=== PATIENT | female | born 1955 | race Caucasian/White ===

== ENCOUNTER → 2023-07-27 10:00 | Outpatient (REF) | payer MEDICARE, OTHER, SELFPAY | LOC: CLAB 10:00 | PROVIDERS: ATTENDING PHYSICIAN Obstetrics & Gynecology Gynecology | DX: N95.0 Postmenopausal bleeding (principal); R93.89 Abnormal findings on diagnostic imaging of other specified body structures | CPT/HCPCS: 88305 ==

== ENCOUNTER → 2023-08-31 10:04 | Outpatient (REF) | payer MEDICARE, OTHER, SELFPAY | LOC: HWRAD 10:04 | PROVIDERS: ATTENDING PHYSICIAN Nurse Practitioner Adult Health | DX: Z78.0 Asymptomatic menopausal state (principal) | CPT/HCPCS: 77080 ==

== ENCOUNTER → 2023-09-06 18:13 | Outpatient (REF) | payer MEDICARE, OTHER, SELFPAY | LOC: MRI 3T 18:13 | PROVIDERS: ATTENDING PHYSICIAN Obstetrics & Gynecology Gynecology; FAMILY PHYSICIAN Nurse Practitioner Adult Health | DX: Z98.890 Other specified postprocedural states (principal); R93.89 Abnormal findings on diagnostic imaging of other specified body structures | CPT/HCPCS: 72197 ==

== ENCOUNTER → 2023-10-26 10:41 | Outpatient (REF) | payer MEDICARE, OTHER, SELFPAY | LOC: HWWDC 10:41 | PROVIDERS: ATTENDING PHYSICIAN Nurse Practitioner Adult Health | DX: Z12.31 Encounter for screening mammogram for malignant neoplasm of breast (principal) | CPT/HCPCS: 77063; 77067 ==

== ENCOUNTER 2023-11-27 06:30 | Day surgery (SDC) | payer MEDICARE, OTHER, SELFPAY ==
[2023-11-27] VITALS (13 sets, daily range): BP systolic 104–175; BP diastolic 54–81; BMI 38.9
[2023-11-27] MEDS: NEURONTIN 300 MG PO (09:01)
[2023-11-27] MEDS: CELEBREX 200 MG PO (09:01)
[2023-11-27] MEDS: TYLENOL 1000 MG PO (09:01)
[2023-11-27] MEDS: HEPARIN 5000 UNITS SC (09:02)
[2023-11-27] MEDS: NORMOSOL-R 1000 IV (09:04)
[2023-11-27 09:25] LABS: Hematocrit 37.6 % (37.0-47.0); Hemoglobin 12.3 g/dL (12.0-16.0); Mean Corp Hgb Conc. 32.7 g/dL (33.0-37.0); Mean Corpuscular Hgb 27.5 pg (27.0-31.0); Mean Corpuscular Volume 84.1 fL (81.0-99.0); Mean Platelet Volume 9.7 fL (7.4-10.4); Platelet Count 377 10^3/uL (130-400); Red Blood Cell Count 4.47 10^6/uL (4.20-5.40); Red Cell Dist. Width 14.2 % (11.5-14.5); White Blood Cell Count 10.8 10^3/uL (4.8-10.8)
[2023-11-27 09:33] LABS: ALT (SGPT) 12 U/L (0-35); AST (SGOT) 20 U/L (14-36); Albumin 4.1 g/dl (3.5-5.0); Alkaline Phosphatase 107 U/L (38-126); Blood Urea Nitrogen 12 mg/dl (7-17); Calcium 9.5 mg/dl (8.4-10.2); Carbon Dioxide 27 mmol/L (22-30); Chloride 100 mmol/L (98-107); Estimated Creatinine Clearance 93 ml/min; Glucose 104 mg/dl (70-99); Potassium 3.8 mmol/L (3.5-5.1); Sodium 137 mmol/L (135-145); Total Bilirubin 0.7 mg/dl (0.2-1.3); Total Protein 7.5 g/dl (6.3-8.2); eGFR > 60.00
--- NOTE | 2023-11-27 12:31 | OR.RPT ---
Operative Report
Operative Report
Date of surgery: November 27, 2023
Preoperative diagnosis: Thickened endometrial lining, postmenopausal bleeding, prior history of endometrial ablation with inability to assess endometrium
Postoperative diagnosis endometrial polyp pending final pathology
Procedures: Robotic assisted total laparoscopic hysterectomy, bilateral salpingo-oophorectomy, injection of cervix with ICG dye for mapping and identification of sentinel lymph nodes, robotic assisted bilateral pelvic sentinel lymphadenectomy,
repair of vaginal lacerations, tap block
Surgeon:Zafar Garcia
Assist: Jonah Henson
Anesthesia: General endotracheal intubation
Estimated blood loss 100 cc
Complication: None
Procedure in detail: This patient was brought to the operating room and placed in supine position, general anesthesia was administered and she was intubated without any difficulty. She was placed in lithotomy position using yellowfin stirrups, arms
were wrapped and placed along the patient's side and all joints were protected. The patient was prepped and draped, timeout procedure was carried out. Olivarez catheter was inserted for bladder drainage under sterile conditions. Anterior lip of the
cervix was grasped with single-tooth tenaculum, cervical canal was dilated, I only could get 6 cm into the canal. The cervix was injected with ICG dye at 3 and 9:00 at 5 mm and 10 mm stations. Uterine manipulator with 3.0 cm KAMRYN ring was placed.
Attention was turned abdominally. Veress needle was inserted just below left costal margin and abdomen was insufflated with CO2 gas up to pressure of 15 mmHg. Next Optiview laparoscopic approach was used to enter in the right upper quadrant, we
noted presence of adhesions to the anterior abdominal wall from the omentum and a portion of the omentum that had herniated through the umbilicus. 8 mm robotic ports were placed in the left lateral abdomen and left upper quadrant and then we
inserted a port in the right lateral abdomen, we took the adhesions down sharply with scissors and took The portion of the omentum from umbilical hernia and this allowed us to place a port along the midline 25 cm cephalad to symphysis pubis.
Tap block was performed using a mixture of 0.5% ropivacaine 30 cc diluted with 30 cc saline, this mixture was injected 2 fingerbreadths below the costal margins laterally as well as mid lateral abdomen under direct visualization just above the
peritoneum and under the muscle.
The patient was placed in deep Trendelenburg at 30 degrees and robotic system was docked. Pelvic washings were collected and submitted to pathology. There is evidence of hemosiderin stains involving pelvic peritoneum. Adhesions of the sigmoid
colon to the left pelvis were taken down adhesions of the small bowel to the right pelvis was taken down. Right and left round ligaments were sealed and divided anterior and posterior leaves of the broad ligament were dissected open both
retroperitoneal spaces were opened, there was excessive redundant sigmoid colon which interfered with visualization of pelvic organs and needed to be retracted at all times throughout the rest of the case. [place] lymph nodes were identified at
the proximal aspects of right external iliac artery and left external iliac artery and these were removed and submitted to pathology. We identified the ureter bilaterally and created a window between IP ligaments and ureters. Both IP ligaments
were sealed 3 times and divided. Tubes and ovaries were left attached to the uterus. We developed sharply the vesicouterine peritoneum and took it down below the level of the cervix. Uterine arteries followed by cardinal ligaments followed by
uterosacral ligaments were sealed and divided. Circumferential incision was made around the KAMRYN ring and then the specimen was removed through the vagina. This was sent for frozen section. Vaginal cuff was closed with 0 Vicryl suture ligature in
a [id number] fashion incorporating uterosacral ligaments for support on both apices. 2 -0 V-Loc suture was used to close the vaginal apex from right to the left and a second layer going back to the right side. All operative sites were
examined and good hemostasis was present. Frozen section of the uterus reveals endometrium to have probably a benign polyp but no other worrisome lesions. Decision was made to close the case. Laparoscopic ports and robotic system was undocked and
pneumoperitoneum was released. Skin incisions were closed with 4-0 Monocryl in a subcuticular fashion. I examined the vagina and there were bilateral lacerations along the right and left posterior aspect of introitus and these were repaired with a
series of [id number] sutures of 3-0 Vicryl. Good hemostasis was obtained. Patient was awakened extubated and returned back to recovery room stable awake and extubated condition. I was present and scrubbed for entire procedure as dictated
above
Disposition: To PACU, extubated alert, stable
[2023-11-27] MEDS: ZOFRAN 4 MG IV (12:45)
[2023-11-27] MEDS: DEMEROL 12.5 MG IV ×2 (12:45→13:00)
[2023-11-27] MEDS: CIPRO 500 MG PO (14:17)
[2023-11-27] MEDS: TYLENOL 650 MG PO (15:06)
== END 2023-11-27 15:24 | disposition home or self-care (01) ==
LOC: SDS 06:30
PROVIDERS: ATTENDING PHYSICIAN Obstetrics & Gynecology Gynecologic Oncology
DX: N84.0 Polyp of corpus uteri (principal); D25.9 Leiomyoma of uterus, unspecified; N83.8 Other noninflammatory disorders of ovary, fallopian tube and broad ligament; N83.292 Other ovarian cyst, left side; N83.291 Other ovarian cyst, right side
CPT/HCPCS: 58571; 38571; 38900; 57200; 88307; 88309; 88332; 80053; 85027; 86850; 86900; 86901; 88112; 88331; 88342

== ENCOUNTER 2024-07-23 15:21 | Emergency (ER) | payer MEDICARE, OTHER, SELFPAY ==
[2024-07-23 15:27] VITALS: BP 131/51
[2024-07-23 15:48] LABS: % Basophils 1.1 % (0-2); % Eosinophils 7.2 % (0-6); % Immature Granulocytes 0.4 % (0-0.5); % Lymphocytes 21.3 % (20.5-51.1); % Monocytes 7.2 % (1.7-9.3); % Neutrophils 62.8 % (42.2-75.2); Absolute Basophils 0.1 10^3/uL (0-0.2); Absolute Eosinophils 0.7 10^3/uL (0-0.7); Absolute Monocytes 0.7 10^3/uL (0.1-0.6); Absolute Neutrophils 5.9 10^3/uL (1.4-6.5); Hematocrit 36.9 % (37.0-47.0); Hemoglobin 11.9 g/dL (12.0-16.0); Mean Corp Hgb Conc. 32.2 g/dL (33.0-37.0); Mean Corpuscular Hgb 26.9 pg (27.0-31.0); Mean Corpuscular Volume 83.5 fL (81.0-99.0); Mean Platelet Volume 9.6 fL (7.4-10.4); Nucleated Red Blood Cells % 0 %; Platelet Count 396 10^3/uL (130-400); Red Blood Cell Count 4.42 10^6/uL (4.20-5.40); White Blood Cell Count 9.4 10^3/uL (4.8-10.8)
[2024-07-23 16:00] LABS: ALT (SGPT) 12 U/L (0-35); AST (SGOT) 19 U/L (14-36); Albumin 4.3 g/dl (3.5-5.0); Alkaline Phosphatase 92 U/L (38-126); Blood Urea Nitrogen 17 mg/dl (7-17); Calcium 9.5 mg/dl (8.4-10.2); Carbon Dioxide 30 mmol/L (22-30); Chloride 100 mmol/L (98-107); Glucose 130 mg/dl (70-99); Potassium 3.9 mmol/L (3.5-5.1); Sodium 139 mmol/L (135-145); Total Bilirubin 0.7 mg/dl (0.2-1.3); Total Protein 7.3 g/dl (6.3-8.2); eGFR > 60.00
[2024-07-23 16:11] LABS: Troponin I < 0.012 ng/ml
[2024-07-23 17:31] VITALS: BP 140/52
--- NOTE | 2024-07-23 17:58 | ED.GENMED ---
History of Present Illness
<Kush Ogden Jr., PA-C - Last Filed: 07/23/24 18:40>
General
Chief Complaint: Fainting Sensation
Source: patient
Exam Limitations: none
Time Seen by Provider: 07/23/24 17:38
Nursing documentation reviewed up to this point in time: agreed with
History of Present Illness
History of Present Illness:
69-year-old female presenting to the emergency department today with concerns of jaw discomfort and feeling like she was going to pass out earlier today just prior to arrival. Did not fully pass out was able to sit down felt tingly in her hands and
her face which resolved after few minutes. Also noticed some slight heaviness to her left chest that seem to come and go over the next hour. At this point claims that she generally feels well no significant ongoing symptoms at this point. Denies
similar symptoms in the past. Denies any recent trauma surgery immobilization history of blood clots or leg swelling.
Past History
<Kush Ogden Jr., PA-C - Last Filed: 07/23/24 18:40>
Past History
ED Past Medical History: None
ED Past Surgical History: Cholecystectomy, and Gynecological
Social History
Tobacco: Non-smoker
Personal:
Living: with family
Employment: Employed
Review of Systems
<Kush Ogden Jr., PA-C - Last Filed: 07/23/24 18:40>
Review of Systems
Allergies reviewed?: Yes
All Other Systems: ROS reviewed and negative except as documented in HPI and ROS
Phy Exam
<PERLA Bowser Jr. Last Filed: 07/23/24 18:40>
Physical Exam
Physical Exam:
GENERAL: Alert , in no apparent distress
EYE: pupils equal and reactive
NECK: Supple, no significant adenopathy.
ENT: o/p clr, mmm.
CARDIAC: Regular rate and rhythm .
LUNGS: Clear breath sounds bilaterally, no acute respiratory distress, no wheezes/rales/rhonchi
ABDOMEN: Soft, without focal tenderness, no r/g, no cvat
NEUROLOGICAL: Alert and oriented, no focal neuro deficits
SKIN: Warm and dry, skin intact.
MUSCULOSKELETAL: No edema, well perfused.
PSYCH: Normal and appropriate interaction.
Course
<Kush Ogden Jr., PERLA - Last Filed: 07/23/24 18:40>
Orders/Labs/Results
Orders:
Orders
07/23/24 15:23
ECG [Electrocardiogram (*1)] Urgent
Reason for Study: Syncope
EKG- Treatment ONCE
07/23/24 15:37
Complete Blood Count/With Diff Urgent
Comprehensive Metabolic Panel Urgent
TSH Reflex To Free T4 Urgent
Comment: ADD ON
Troponin I Urgent
07/23/24 17:52
Add On- LAB Urgent
Tests Added?: tsh free t4
Chest [CR Chest - 2 Views ] Urgent
Comment:
Reason For Exam: cp sob
07/23/24 18:25
EKG [Electrocardiogram (*1)] Urgent
Reason for Study: Chest Pain
07/23/24 18:26
EKG- Treatment ONCE
07/23/24 18:37
Troponin I Urgent
Abnormal Lab Results
07/23/24
15:37
Hgb 11.9 L g/dL
(12.0-16.0)
Hct 36.9 L %
(37.0-47.0)
MCH 26.9 L pg
(27.0-31.0)
MCHC 32.2 L g/dL
(33.0-37.0)
RDW 15.0 H %
(11.5-14.5)
Absolute Monos (auto) 0.7 H 10^3/uL
(0.1-0.6)
Eosinophils % 7.2 H %
(0-6)
Glucose 130 H mg/dl
(70-99)
07/23/24 15:37
07/23/24 15:37
Vital Signs
Initial and Last Documented VS:
Initial Vital Signs
Temp Pulse Resp BP Pulse Ox
36.8 C 72 20 131/51 96
07/23/24 15:27 07/23/24 15:27 07/23/24 15:27 07/23/24 15:27 07/23/24 15:27
Last Documented Vital Signs
Temp Pulse Resp BP Pulse Ox
36.8 C 76 33 146/78 97
07/23/24 15:27 07/23/24 18:41 07/23/24 18:41 07/23/24 20:00 07/23/24 18:41
<Kiesha Santana PA-C - Last Filed: 07/23/24 23:35>
Orders/Labs/Results
Orders:
Orders
07/23/24 15:23
ECG [Electrocardiogram (*1)] Urgent
Reason for Study: Syncope
EKG- Treatment ONCE
07/23/24 15:37
Complete Blood Count/With Diff Urgent
Comprehensive Metabolic Panel Urgent
TSH Reflex To Free T4 Urgent
Comment: ADD ON
Troponin I Urgent
07/23/24 17:52
Add On- LAB Urgent
Tests Added?: tsh free t4
Chest [CR Chest - 2 Views ] Urgent
Comment:
Reason For Exam: cp sob
07/23/24 18:25
EKG [Electrocardiogram (*1)] Urgent
Reason for Study: Chest Pain
07/23/24 18:26
EKG- Treatment ONCE
07/23/24 18:37
Troponin I Urgent
Abnormal Lab Results
07/23/24
15:37
Hgb 11.9 L g/dL
(12.0-16.0)
Hct 36.9 L %
(37.0-47.0)
MCH 26.9 L pg
(27.0-31.0)
MCHC 32.2 L g/dL
(33.0-37.0)
RDW 15.0 H %
(11.5-14.5)
Absolute Monos (auto) 0.7 H 10^3/uL
(0.1-0.6)
Eosinophils % 7.2 H %
(0-6)
Glucose 130 H mg/dl
(70-99)
07/23/24 15:37
07/23/24 15:37
Vital Signs
Initial and Last Documented VS:
Initial Vital Signs
Temp Pulse Resp BP Pulse Ox
36.8 C 72 20 131/51 96
07/23/24 15:27 07/23/24 15:27 07/23/24 15:27 07/23/24 15:27 07/23/24 15:27
Last Documented Vital Signs
Temp Pulse Resp BP Pulse Ox
36.8 C 76 33 146/78 97
07/23/24 15:27 07/23/24 18:41 07/23/24 18:41 07/23/24 20:00 07/23/24 18:41
<Kush Ogden Jr., PA-C - Last Filed: 07/23/24 18:40>
MDM/Problems Addressed
MDM/Problems Addressed:
69-year-old female presenting to the emergency department with concerns of a jaw discomfort mainly to her left jaw and feeling like she was going to pass out that lasted for a few moments and seem to resolve. She also felt tingling into her hands
and face. She had some slight chest tightness intermittently over the next hour but that is now resolved. She denies any significant vomiting no heavy sweating. Vital signs on arrival here are normal patient in no distress normal heart lung exam
normal neurologic evaluation. Labs unremarkable troponin negative EKG without emergent findings.
<Kiesha Santana PA-C - Last Filed: 07/23/24 23:35>
*Critical Care Note
Total Time (30-74mins, 75-104mins- exclusive of procedures): Not Applicable
<Kiesha Santana PA-C - Last Filed: 07/23/24 23:35>
Update Note
Update Note:
07/23/2024 2000 PM
Assumed care of the patient from Jaya Ogden PA-C. Patient was here for chest discomfort earlier today, the workup here was reassuring with 1 negative troponin and a nonischemic looking EKG on arrival. The plan was to have a second EKG given her
risk factors are hypertension and hyperlipidemia and former smoking and presuming the troponin does not elevate and she could be discharged to the chest pain hotline. Her second EKG and troponin were negative. I reviewed her chest x-ray
independently and there was no widening of her mediastinum. Patient is chest pain-free and feels fine. Discharged home for the hotline follow-up
ED Attending Note
<Kush Ogden Jr., PA-C - Last Filed: 07/23/24 18:40>
-
Portions of this chart may have been created with voice recognition software.� Occasional wrong word or��sound alike� substitutions may have occurred due to the inherent limitations of voice recognition software.
Discharge Plan
Departure
Patient Disposition: Home (Routine Discharge)
Date of Disposition: 07/23/24
Time of Disposition: 20:01
Patient with high blood pressure during this ER visit?: No
Condition: Good
Covid-19: Not Applicable
Discharge Problem:
Chest pain, Pre-syncope
Instructions: Near Fainting (DC), Chest Pain CBC Follow Up
Prescriptions:
No Action
Hydrochlorothiazide
25 mg PO DAILY
Patient Comments:
does not know the MG
lisinopril 10 mg Tablet
10 mg PO DAILY
mometasone [Nasonex] 50 mcg/actuation [place],Non-Aerosol
2 spray INTRANASAL PRN PRN (Reason: nasal congestion)
rosuvastatin 10 mg Tablet
10 mg PO DAILY
duloxetine 30 mg Capsule,Delayed Release(Dr/Ec)
30 mg PO DAILY
duloxetine 60 mg Capsule,Delayed Release(Dr/Ec)
60 mg PO DAILY
Vitamin D3
1 tab PO DAILY
Zyrtec
1 dose PO DAILY
cyanocobalamin (vitamin B-12)
1 dose PO DAILY
phenazopyridine [Azo] 95 mg Tablet
95 mg PO PRN PRN (Reason: UTI)
nitrofurantoin monohyd/m-cryst [Macrobid] 100 mg Capsule
100 mg PO BID
Patient Comments:
For UTI
Referrals:
Isadora Ramires CRNP [Family Provider] -
Activity Restrictions/Additional Instructions:
You came to the emergency department today with concerns of jaw pain chest pain and additional symptoms. Here you have a reassuring assessment. Please feel closely with cardiology. Return for any persisting or worsening symptoms.
Interventions
Interventions:
*Risk Screen - Suicide Last Done: 07/23/24 15:27
*General Assessment Last Done: 07/23/24 15:27
*Neglect/Abuse Screening Last Done: 07/23/24 15:27
ED- Fall Risk Assessment Last Done: 07/23/24 20:06
*ED COVID-19 Vaccine History Last Done: 07/23/24 20:06
*Nursing Disposition Last Done: 07/23/24 20:06
ED- Cardiac Assessment Last Done: 07/23/24 17:30
ED- Neurological Assessment Last Done: 07/23/24 17:30
Discharge Date and Time
Discharge Date/Time: 07/23/24 20:06
Print Language: GEORGIAN
[2024-07-23 18:00] VITALS: BP 136/53
[2024-07-23 18:59] LABS: TSH Reflex To Free T4 1.48 uIU/ml (0.47-4.68)
[2024-07-23 19:22] LABS: Troponin I < 0.012 ng/ml
[2024-07-23 20:00] VITALS: BP 146/78
== END 2024-07-23 20:06 | disposition home or self-care (01) ==
LOC: EMR 15:21
PROVIDERS: Physician Assistant; EMERGENCY PHYSICIAN Emergency Medicine; FAMILY PHYSICIAN Nurse Practitioner Adult Health
DX: R07.89 Other chest pain (principal); R55 Syncope and collapse; I10 Essential (primary) hypertension; E78.5 Hyperlipidemia, unspecified; Z87.891 Personal history of nicotine dependence; Z90.49 Acquired absence of other specified parts of digestive tract
CPT/HCPCS: 99285; 71046; 80053; 84443; 84484; 85025; 93005

== ENCOUNTER → 2024-08-15 11:23 | Outpatient (REF) | payer MEDICARE, OTHER, SELFPAY | LOC: HWRCS 11:23 | PROVIDERS: ATTENDING PHYSICIAN Internal Medicine Cardiovascular Disease; FAMILY PHYSICIAN Nurse Practitioner Adult Health | DX: R07.89 Other chest pain (principal) | CPT/HCPCS: 78452; 93017; A9500; J2785 ==

== ENCOUNTER → 2024-08-25 13:51 | Outpatient (REF) | payer MEDICARE, OTHER, SELFPAY | LOC: HWRCS 13:51 | PROVIDERS: ATTENDING PHYSICIAN Internal Medicine Cardiovascular Disease; FAMILY PHYSICIAN Nurse Practitioner Adult Health | DX: R07.89 Other chest pain (principal) | CPT/HCPCS: 93306 ==

== ENCOUNTER 2024-08-27 06:12 | Day surgery (SDC) | payer MEDICARE, OTHER, SELFPAY ==
[2024-08-21 10:52] VITALS: BMI 38.8
[2024-08-27] VITALS (9 sets, daily range): BP systolic 101–122; BP diastolic 38–85
[2024-08-27] MEDS: LOW STRENGTH ASPIRIN 81 MG PO (07:02)
--- NOTE | 2024-08-27 08:40 | ITS.CL.CATH ---
[facility] Chief - Catheterization
Cardiac Catheterization
Procedure Report:
CARDIAC CATHETERIZATION REPORT
Date of Procedure: 08/27/2024
Referring: Felix Kuhn D.O.
INDICATION: Resting chest pain, abnormal stress test.
PROCEDURE:
1. Left heart catheterization.
2. Coronary angiography.
A total of 24 minutes of procedural/moderate sedation was utilized. An independent medical doctor md/medical director was present to assist with and help manage the patient's level of consciousness and physiologic status.
ACCESS:
1. 6 [place] right rate artery using a modified Seldinger technique.
CATHETERS:
1. 5 [place] JR4.
2. 5 [place] JL 3.5.
HEMODYNAMIC DATA
Weight (kg): 104.3
AO (s/d/x, mmHg): 107/55/77
LV (s/x mmHg): 115/17
LEFT VENTRICULOGRAPHY: Not performed.
CORONARY ANGIOGRAPHY
Dominance: Right.
Left Main: Normal size, bifurcating vessel. There is no coronary artery disease.
LAD: Large size vessel giving rise to 1 significant diagonal. There is a 30% lesion in the proximal vessel.
Ramus: Congenitally absent.
Circumflex: Large size vessel that is essentially a single obtuse marginal. This marginal bifurcates into an upper and lower branch. There is no coronary artery disease. The distal margins of the obtuse marginal branches are severely tortuous.
RCA: Enormous, dominant vessel with with an upward angled origin and a huge posterolateral branch. There is no coronary artery disease. The JR4 catheter did not sit well in the vessel, allowing only nonselective angiography. The JL 3.5
catheter was used to cannulate the vessel after left-sided angiography.
INTERVENTION(S)
None.
Closure Device: Vascular band.
Radiation (mGy): 603.36
DAP (cm2.Gy): 50.4144
Fluoroscopy time (minutes): 3.3
CONCLUSIONS
1. Right dominant circulation with a 30% lesion in the proximal LAD and an enormous right coronary artery with an upward origin, making selective angiography difficult.
2. Mildly elevated filling pressures (LVEDP = 17 mmHg at 104.3 kg).
RECOMMENDATIONS:
1. Expectant management after cardiac catheterization via right radial approach.
2. Limited weight bearing on the right wrist for one week.
3. Aggressive primary prevention with high-dose, high potency statin. Goal LDL <55.
4. Start furosemide 20 mg daily for mildly elevated filling pressures. Discontinue hydrochlorothiazide. BMP in 1 week.
5. OMT/GDMT as hemodynamics will tolerate.
6. Stable for outpatient follow-up.
Copy to: Felix Kuhn D.O., TATIANA King
Felix Kuhn, , FACC, FACP
[2024-08-27] MEDS: NSS 1000 IV (09:06)
== END 2024-08-27 11:15 | disposition home or self-care (01) ==
LOC: CATH 06:12
PROVIDERS: ATTENDING PHYSICIAN Internal Medicine Cardiovascular Disease; FAMILY PHYSICIAN Nurse Practitioner Adult Health
DX: I25.10 Atherosclerotic heart disease of native coronary artery without angina pectoris (principal); R07.89 Other chest pain; R94.39 Abnormal result of other cardiovascular function study; R07.9 Chest pain, unspecified; I10 Essential (primary) hypertension; E78.2 Mixed hyperlipidemia; E74.39 Other disorders of intestinal carbohydrate absorption
CPT/HCPCS: 93458; 99152; 99153; C1894; Q9967

== ENCOUNTER → 2024-09-05 10:00 | Outpatient (REF) | payer MEDICARE, OTHER, SELFPAY ==
[2024-09-05 14:27] LABS: Blood Urea Nitrogen 18 mg/dl (7-17); Calcium 9.3 mg/dl (8.4-10.2); Carbon Dioxide 28 mmol/L (22-30); Chloride 109 mmol/L (98-107); Glucose 103 mg/dl (70-99); Sodium 145 mmol/L (135-145); eGFR > 60.00
== END ==
LOC: HWLAB 10:00
PROVIDERS: ATTENDING PHYSICIAN Internal Medicine Cardiovascular Disease; FAMILY PHYSICIAN Nurse Practitioner Adult Health
DX: I10 Essential (primary) hypertension (principal)
CPT/HCPCS: 36415; 80048

== ENCOUNTER → 2024-11-24 14:27 | Outpatient (REF) | payer MEDICARE, OTHER, SELFPAY | LOC: DHSLP 14:27 | PROVIDERS: ATTENDING PHYSICIAN Internal Medicine Critical Care Medicine; FAMILY PHYSICIAN Nurse Practitioner Adult Health | DX: G47.33 Obstructive sleep apnea (adult) (pediatric) (principal) | CPT/HCPCS: 95800 ==

== ENCOUNTER → 2025-03-16 14:13 | Outpatient (REF) | payer MEDICARE, OTHER, SELFPAY | LOC: HWWDC 14:13 | PROVIDERS: ATTENDING PHYSICIAN Nurse Practitioner Adult Health | DX: Z12.31 Encounter for screening mammogram for malignant neoplasm of breast (principal) | CPT/HCPCS: 77063; 77067 ==